=== PATIENT | female | born 2000 ===

== ENCOUNTER 2020-08-30 04:24 | Inpatient (IN) ==
[2020-08-30] MEDS ORDERED: BUTORPHANOL 2 MG/ML VIAL IV PRN (04:39)
[2020-08-30] MEDS ORDERED: MEPERIDINE 50 MG/1 ML VIAL IV PRN (04:39)
[2020-08-30] MEDS ORDERED: ONDANSETRON 4 MG/2 ML VIAL IV PRN ×2 (04:39→21:45)
[2020-08-30] MEDS ORDERED: OXYTOCIN/LR 20 UNIT/1,000 ML BAG IV SCH (05:00)
[2020-08-30] MEDS: LACTATED RINGERS 1,000 ML IV SCH ×3 (05:00→23:00)
[2020-08-30] MEDS ORDERED: NIFEdipine 10 MG CAPSULE PO ONE ×2 (05:17→18:49)
[2020-08-30] MEDS ORDERED: NIFEdipine 10 MG CAPSULE PO PRN (05:43)
[2020-08-30 05:45] LABS: Basophils % 0.4 % (0.0-0.8); Eosinophils # 0.1 10*3/uL (0.0-0.87); Eosinophils % 1.1 % (0.00-10.9); Hematocrit 30.3 VOL% (35.7-47.0); Hemoglobin 10.1 GM/DL (12.0-16.0); Immature Granulocytes % 0.6 %; Immature Granulocytes Absolute 0.05 #; Lymphocytes # 2.6 10*3/uL (1.4-4.0); Lymphocytes % 30.8 % (21.3-54.2); Mean Corpuscular HGB Conc 33.3 GM/DL (32-36); Mean Corpuscular Volume 81.9 FL (87-102); Mean Platelet Volume 12.3 FL (9.6-12.0); Monocytes % 10.6 % (1.7-12.7); Neutrophils % 56.5 % (38.7-73.9); Platelet Count 212 T/CUMM (130-400); Red Cell Distribution Width 15.7 % (9.3-17.3); White Blood Count 8.3 T/CUMM (4-12)
[2020-08-30 05:55] LABS: INR 0.8; PT Patient Result 9.6 SECS (10.5-12.0); Partial Thromboplastin Time 27.4 SECS (23.9-33.8)
[2020-08-30 05:57] LABS: Bilirubin,Direct < 0.100 MG/DL (0.0-0.20); Uric Acid 5.9 MG/DL (2.6-6.0)
[2020-08-30 06:24] LABS: Alanine Aminotransferase 14 U/L (13-56); Albumin 2.3 G/DL (3.4-5.0); Alkaline Phosphatase 213 U/L (45-117); Aspartate Amino Transferase 18 U/L (0-37); Bilirubin,Total < 0.39 MG/DL (0.2-1.0); Blood Urea Nitrogen 11 MG/DL (7-18); Calcium 8.5 MG/DL (8.5-10.1); Carbon Dioxide 20 MMOL/L (21-32); Estimated Glom Filtration Rate 129 ML/MIN; Glucose 82 MG/DL (74-106); Osmolality,Calculated 276.4 MOS/KG (273-304); Potassium 3.7 MMOL/L (3.5-5.1); Sodium 140 MMOL/L (136-145); Total Protein 6.5 G/DL (6.4-8.2)
[2020-08-30] MEDS ORDERED: diphenhydrAMINE 50 MG/1 ML VIAL IV PRN (14:14)
[2020-08-30] MEDS ORDERED: FAMOTIDINE 20 MG/2 ML VIAL IV ONE (14:14)
[2020-08-30] MEDS ORDERED: PROMETHAZINE 25 MG/1 ML VIAL IM PRN (14:14)
[2020-08-30] MEDS ORDERED: ePHEDrine 50 MG/ML VIAL IV PRN (14:14)
[2020-08-30] MEDS ORDERED: hydrOXYzine HCL 25 MG/1 ML VIAL IM PRN (14:14)
[2020-08-30] MEDS ORDERED: CITRIC ACID/SODIUM CITRATE 30 ML UDCUP PO ONE (14:14)
[2020-08-30] MEDS ORDERED: NALOXONE 0.4 MG/ML VIAL IV PRN (14:14)
[2020-08-30] MEDS ORDERED: fentaNYL 2 MCG/ROPIV 0.2% EPID 100 ML EPIDURAL SCH (14:30)
[2020-08-30 15:54] LABS: Bilirubin,Urine Negative (Negative); Blood, Urine Negative (Negative); Glucose,Urine (UA) Negative (Negative); Ketones,Urine Negative (Negative); Mucus,Urine Occasional /LPF (Occasional); Nitrite,Urine Negative (Negative); Protein,Urine >=500 MG/DL; Squamous Epithelial Cell,Urine Occasional /HPF (0-10); Urine Appearance CLEAR (Clear); Urine Color Yellow (Yellow); Urine Specific Gravity 1.013 (1.001-1.035); Urine Urobilinogen < 2.0 EU/DL (0.2-1.0)
[2020-08-30] MEDS ORDERED: miSOPROStoL 200 MCG TABLET ONE (17:44)
[2020-08-30] MEDS ORDERED: METHYLERGONOVINE 0.2 MG/1 ML AMP ONE (17:45)
[2020-08-30] MEDS ORDERED: CARBOPROST TROMETHAMINE 250 MCG/ML AMP IM ONE (17:45)
[2020-08-30] MEDS ORDERED: ceFAZolin 2,000 MG/50 ML DUPLEX IV ONE (20:11)
[2020-08-30] MEDS ORDERED: OXYTOCIN/LR 30 UNIT/1,000 ML BAG IV ONE (20:14)
[2020-08-30] MEDS ORDERED: LIDOCAINE MPF 2% /EPI 20 ML VIAL ONE (20:30)
[2020-08-30] MEDS ORDERED: OXYTOCIN 10 UNIT/ML VIAL ONE (20:31)
[2020-08-30] MEDS ORDERED: MORPHINE 10 MG/10 ML VIAL ONE (21:08)
[2020-08-30] MEDS ORDERED: fentaNYL 100 MCG/2 ML VIAL ONE ×2 (21:19→21:36)
[2020-08-30] MEDS ORDERED: SEVOFLURANE 1 UNIT/15 MINUTE INH ONE ×2 (21:34→22:00)
[2020-08-30] MEDS ORDERED: propofoL 200 MG/20 ML VIAL IV ONE (21:34)
[2020-08-30] MEDS ORDERED: SUCCINYLCHOLINE 200 MG/10 ML VIAL ONE (21:34)
[2020-08-30] MEDS ORDERED: ONDANSETRON 4 MG/2 ML VIAL ONE (21:34)
[2020-08-30 21:37] LABS: Cord Arterial Blood HCO3 20.2 MMOL/L
[2020-08-30 21:40] LABS: Cord Venous Blood HCO3 20.6 MMOL/L; Cord Venous Blood PCO2 55.2 MMHG; Cord Venous Blood PO2 23.8
[2020-08-30] MEDS ORDERED: ACETAMINOPHEN 325 MG TABLET PO PRN (21:45)
[2020-08-30] MEDS ORDERED: OXYTOCIN/LR 20 UNIT/1,000 ML BAG IV ONE (21:45)
[2020-08-30] MEDS ORDERED: RHO(D) IMMUNE GLOBULIN 300 MCG SYRINGE IM ONE (21:45)
[2020-08-30] MEDS ORDERED: SIMETHICONE CHEW 80 MG TABLET PO PRN (21:45)
[2020-08-30] MEDS ORDERED: LACTATED RINGERS 1,000 ML IV SCH (22:00)
[2020-08-30] MEDS ORDERED: LABETALOL 20 MG/4 ML SYRINGE IV ONE (22:25)
[2020-08-30] MEDS ORDERED: LABETALOL 100 MG/20 ML VIAL IV ONE (22:26)
[2020-08-30] MEDS ORDERED: hydrALAZINE 20 MG/1 ML VIAL ONE (22:29)
[2020-08-30] MEDS: hydrALAZINE 20 MG/1 ML VIAL IV SCH ×2 (22:32→22:50)
[2020-08-30] MEDS ORDERED: HYDROmorphone 2 MG/1 ML VIAL IV PRN (22:47)
[2020-08-31] MEDS: FUROSEMIDE 40 MG/4 ML VIAL IV SCH ×3 (00:44→14:38)
[2020-08-31] MEDS: IBUPROFEN 800 MG TABLET PO PRN (06:03)
[2020-08-31 07:23] LABS: Basophils % 0.1 % (0.0-0.8); Eosinophils % 0.1 % (0.00-10.9); Hemoglobin 8.6 GM/DL (12.0-16.0); Immature Granulocytes % 0.5 %; Immature Granulocytes Absolute 0.08 #; Lymphocytes # 2.5 10*3/uL (1.4-4.0); Lymphocytes % 16.6 % (21.3-54.2); Mean Corpuscular HGB Conc 34.4 GM/DL (32-36); Mean Corpuscular Volume 80.1 FL (87-102); Mean Platelet Volume 10.6 FL (9.6-12.0); Monocytes % 8.1 % (1.7-12.7); Neutrophils % 74.6 % (38.7-73.9); Platelet Count 182 T/CUMM (130-400); Red Blood Count 3.12 MC/CUMM (3.8-5.5); White Blood Count 14.9 T/CUMM (4-12)
[2020-08-31] MEDS ORDERED: MULTIVITAMIN (PRENATAL) TABLET PO SCH (09:00)
[2020-08-31] MEDS ORDERED: FERROUS SULFATE 325 MG TABLET PO SCH (12:00)
[2020-08-31] MEDS ORDERED: FUROSEMIDE 40 MG/4 ML VIAL IV SCH (13:30)
[2020-08-31] MEDS ORDERED: KETOROLAC 30 MG/1 ML VIAL IV ONE (15:25)
[2020-08-31] MEDS: MAGNESIUM HYDROXIDE SUSP 30 ML UDCUP PO PRN (21:22)
[2020-08-31] MEDS: FERROUS SULFATE 325 MG TABLET PO SCH (21:23)
[2020-08-31] MEDS: DOCUSATE SODIUM 100 MG CAPSULE PO SCH (21:23)
[2020-09-01] MEDS: IBUPROFEN 800 MG TABLET PO PRN (03:27)
[2020-09-01 08:26] VITALS: BP 115/62
[2020-09-01] MEDS: DOCUSATE SODIUM 100 MG CAPSULE PO SCH (08:35)
[2020-09-01] MEDS: MAGNESIUM HYDROXIDE SUSP 30 ML UDCUP PO PRN (09:46)
[2020-09-01] MEDS: FERROUS SULFATE 325 MG TABLET PO SCH (09:47)
[2020-09-01] MEDS ORDERED: DIPH/TET/ACEL PERT BOOSTER VACCINE 0.5 ML VIAL IM ONE (11:18)
== END 2020-09-01 13:20 | disposition home or self-care (01) | DRG 540 ==
LOC: N.LDOUT 04:24 → N.LD 04:26 → N.OB 08-31 11:55
PROVIDERS: ADMIT Obstetrics & Gynecology; ATTEND Obstetrics & Gynecology
PROC: LDCSECT (ICD-10-PCS; 2020-08-30 20:15)